=== PATIENT | male | born 1960 | race Caucasian/White ===

== ENCOUNTER 2022-03-20 07:42 | Outpatient (REF) | payer OTHER, BC, SELFPAY ==
[2022-03-20 07:51] LABS: MANUAL DIFF FLAG NO
[2022-03-20 08:17] LABS: Basophils Absolute Auto 0.1 X10*3/uL (0.0-0.2); Basophils Percent Auto 0.7 % (0-2); Eosinophils Absolute Auto 0.2 X10*3/uL (0.0-0.4); Eosinophils Percent Auto 2.5 % (0-4); Hemoglobin 16.2 g/dl (14.0-18.0); Imm Gran Abs Auto 0.02 X10*3/uL (0.00-0.03); Imm Gran Pct Auto 0.3 % (0.0-0.4); Lymphocytes Absolute Auto 2.4 X10*3/uL (1.2-4.9); Lymphocytes Percent Auto 34.9 % (20-40); Mean Corpuscular HGB Conc 33.8 g/dl (31.0-36.0); Mean Corpuscular Hemoglobin 29.3 pg (27.0-33.0); Mean Platelet Volume 9.4 fL (9.4-12.4); Monocytes Absolute Auto 0.6 X10*3/uL (0.1-1.2); Monocytes Percent Auto 8.6 % (2-11); Neutrophils Absolute Auto 3.6 x10*3/uL (2.0-8.3); Platelet Count 263 X10*3/uL (160-400); Red Blood Count 5.52 X10*6/uL (4.60-5.80); Red Cell Distribution Width 12.6 % (11.0-16.0); White Blood Count 6.9 X10*3/uL (4.8-10.8)
[2022-03-20 08:52] LABS: Alanine Aminotransferase 32 U/L (0-40); Albumin Level 4.5 g/dL (3.5-5.0); Alkaline Phosphatase 71 U/L (39-117); Anion Gap 14 (12-20); Aspartate Amino Transferase 23 U/L (5-37); Bilirubin Total 0.6 mg/dL (0.0-1.0); Blood Urea Nitrogen 14 mg/dL (9-16); Calcium 9.9 mg/dL (8.4-10.2); Carbon Dioxide 28 mmol/L (22-29); Chloride 105 mmol/L (96-108); Cholesterol 237 mg/dL; Estimated Glomerular Filt Rate > 60; Glucose Fasting 96 mg/dL (60-99); HDL Cholesterol 36 mg/dL; LDL Cholesterol Calculated 144 mg/dl; Sodium 142 mmol/L (135-145); Total Protein 7.4 g/dL (6.5-8.0); Triglycerides 287 mg/dL
[2022-03-20 09:08] LABS: Prostate Specific Antigen 0.43 ng/mL (<0.05-4.0); TSH reflex Free T4 1.05 uIU/mL (0.32-4.0)
== END 2022-03-20 07:43 | disposition home or self-care (01) ==
LOC: HO.LAB 07:42
PROVIDERS: PCP Internal Medicine; Visit Provider Internal Medicine
DX: Z00.01 Encounter for general adult medical examination with abnormal findings (principal); Z12.5 Encounter for screening for malignant neoplasm of prostate; E66.09 Other obesity due to excess calories; R03.0 Elevated blood-pressure reading, without diagnosis of hypertension
CPT/HCPCS: 36415; 80053; 80061; 84153; 84443; 85025

== ENCOUNTER 2023-03-21 10:22 | Outpatient (AMB) | payer BC, OTHER, SELFPAY ==
--- NOTE | 2023-03-21 10:25 | A.OFFPC_ITS ---
Vital Signs 03/21/23 10:26 Height 5 ft 11 in Weight 219 lb 4 oz BMI 30.6 BP 120/92 H Blood Pressure Location Rt brachial Position Sitting Pulse 91 Pulse Source Pulse Oximeter Pulse Oximetry (%) 98 Oxygen Delivery Method Room Air Intake Visit Reasons: Annual PE Allergies penicillin V Allergy (Unknown, Verified 03/21/23 10:26) Anaphylaxis Medication List - Last Reconciled 03/21/23 by Roger Jacobs MD No Known Home Meds Tobacco use date assessed: 03/21/23 Dental Screening Dental Screen Date: 03/21/23 Did you have a dental visit in the last 12 months?: Yes Did you have a dental problem in the last 6 months where you did not have access to dental care?: No Was dental information given to patient?: Patient has dentist HPI Annual PE HPI Details Patient is a 62-year-old gentleman came in today for physical examination Patient is taking medication his blood pressure is slightly elevated at 92 diastolic Patient is monitoring his pressure at he does not want to take any medication He was able to lose 10 lb since seen last 1 year ago Offers no complaint Patient is taking care of his and stays busy I did order colonoscopy consultation for the patient last time he said nobody called him I have given him Gastroenterology number so we can call in book is on appointment His LDL is slightly elevated I recommend diet-controlled. [facility] Social History Housing: Apartment Patient Tobacco Use Status: Never used Tobacco e-Cigarette/Vaping Use: Never Used service: Yes Current occupational status: employed and retired Cognitive needs: No Hearing needs: No Vision needs: Yes Questionnaire PHQ-9 Over the last 2 weeks, how often have you been bothered by any of the following problems? 1. Little interest or pleasure in doing things: not at all 2. Feeling down, depressed, or hopeless: not at all 3. Trouble falling or staying asleep, or sleeping too much: not at all 4. Feeling tired or having little energy: not at all 5. Poor appetite or overeating: not at all 6. Feeling bad about yourself - or that you are a failure or have let yourself or your family down: not at all 7. Trouble concentrating on things, such as reading the newspaper or watching television: not at all 8. Moving or speaking so slowly that other people could have noticed. Or the opposite - being so fidgety or restless that you have been moving around a lot more than usual: not at all 9. Thoughts that you would be better off or of hurting yourself in some way: not at all Total score: 0 Depression Screening Interpretation: Negative Depression Screening Done: Yes 20066 - PHQ-9 Billing: Yes Source: Developed by Drs. Gian Brown, Roxy Hernandez, Prakash Castillo and colleagues, with an educational yonas from [employer]. Thrive Questionnaire Date Thrive assessed: 03/17/22 AUDIT C Alcohol Use Questionnaire (AUDIT-C) 1. How often do you have a drink containing alcohol?: Never 3. How often do you have six or more drinks on one occasion?: Never Total Score: 0 Score Reviewed/Action Taken: No STEFF-7 AMB Questionnaire STEFF-7 Date STEFF - 7 assessed: 03/17/22 Source: Developed by Drs. Gian Brown, Roxy Hernandez, Prakash Castillo and colleagues, with an educational yonas from [employer]. Review of Systems Const Denies chills, Denies fever(s) and Denies headache(s) Eyes Denies blurry vision ENT Denies headache(s), Denies nasal discharge, Denies nasal obstruction, Denies odynophagia and Denies sinus pain Card Denies chest pain at rest and Denies chest pain with activity Resp Denies cough and Denies hemoptysis GI Denies diarrhea, Denies odynophagia, Denies vomiting and Denies hematemesis Reports as per HPI Musc Denies abnormal gait Skin/Breast Reports as per HPI Neuro Denies Neuro-related abnormal movements, Denies Abnormal speech present, Denies abnormal gait, Denies headache(s) and Denies Sensory deficit (Neuro) Psych Denies mood swings and Denies paranoia Endo Reports as per HPI Sal/Lymph Reports as per HPI Aller/Immun Reports as per HPI Physical exam (Primary Care) Vital Signs: Last Vital Signs Pulse 91 03/21/23 10:26 BP 120/92 H 03/21/23 10:26 Pulse Ox 98 03/21/23 10:26 Oxygen Delivery Method Room Air 03/21/23 10:26 BMI result Body Mass Index 30.6 Tobacco/Smoking Status: Tobacco use Status Tobacco use date assessed 03/21/23 03/21/23 10:28 Patient Tobacco Use Status Never used Tobacco 03/21/23 10:28 e-Cigarette/Vaping Use Never Used 03/21/23 10:28 Depression Screening Interpretation: Negative Thrive Assessment: Date of Thrive Assessment Date Thrive assessed 03/17/22 03/21/23 10:28 Const General: cooperative, comfortable and no acute distress Orientation/consciousness: patient oriented x3 HENMT Head: Yes normocephalic and Yes atraumatic Eyes General: appearance normal, both eyes and all related structures Pupils: Equal, round and reactive pupils present EOM: EOMs intact bilaterally Neck Neck: Yes supple and No lymphadenopathy Thyroid: Thyroid normal Lymphatic: no lymphadenopathy noted Resp Effort & Inspection: normal respiratory effort and able to speak in complete sentences Auscultation: clear to auscultation bilaterally Cardio Heart sounds: S1 normal heart sound present and S2 normal heart sound present GI Other: Patient has ventral hernia, no pain with palpation, he has been evaluated by surgery Palpation (GI): Soft to palpation and nontender Auscultation: normal bowel sounds General: Yes no CVA tenderness Back/Spine/Pelvis Back: no CVA tenderness Skin General skin exam: elasticity normal and turgor normal Neuro General: patient oriented x3 and gait normal Cranial nerves: Yes Equal, round and reactive pupils present Speech: No Abnormal speech present Sensory Exam: No Sensory deficit (Neuro) Coordination: tandem gait normal and Romberg test negative Extrem General: Yes normal exam except as noted and No edema Assessment and Plan Assessment & Plan (1) Encounter for general adult medical examination with abnormal findings: Code(s): Z00.01 - Encounter for general adult medical examination with abnormal findings (2) Obesity due to excess calories: Code(s): E66.09 - Other obesity due to excess calories Qualifiers: Body mass index: BMI 30.0-30.9 Obesity classification: adult class 1 (BMI 30 - 34.9) Serious obesity comorbidity presence: without serious comorbidity Qualified Code(s): E66.09 - Other obesity due to excess calories; Z68.30 - Body mass index [BMI] 30.0-30.9, adult (3) Ventral hernia: Code(s): K43.9 - Ventral hernia without obstruction or gangrene Qualifiers: Obstruction and gangrene presence: without obstruction or gangrene Qualified Code(s): K43.9 - Ventral hernia without obstruction or gangrene Plan Patient is a 62-year-old gentleman came in today for physical examination Patient is taking medication his blood pressure is slightly elevated at 92 diastolic Patient is monitoring his pressure at he does not want to take any medication He was able to lose 10 lb since seen last 1 year ago Offers no complaint Patient is taking care of his and stays busy I did order colonoscopy consultation for the patient last time he said nobody called him I have given him Gastroenterology number so we can call in book is on appointment His LDL is slightly elevated I recommend diet-controlled. Coding Level of Care Code Est Pt Prev Care 40-64y(87086) Diagnoses Encounter for general adult medical examination with abnormal findings Z00.01 Class 1 obesity due to excess calories without serious comorbidity with body mass index (BMI) of 30.0 to 30.9 in adult E66.09; Z68.30 Body mass index: BMI 30.0-30.9 Obesity classification: adult class 1 (BMI 30 - 34.9) Serious obesity comorbidity presence: without serious comorbidity Ventral hernia without obstruction or gangrene K43.9 Obstruction and gangrene presence: without obstruction or gangrene
[2023-03-21 10:26] VITALS: BP 120/92; PULSE 91; O2SAT 98; BMI 30.6
== END 2023-03-21 10:56 | disposition home or self-care (01) ==
PROVIDERS: Visit Provider Internal Medicine
DX: Z00.00 Encounter for general adult medical examination without abnormal findings (principal); E66.09 Other obesity due to excess calories; Z68.30 Body mass index [BMI] 30.0-30.9, adult; K43.9 Ventral hernia without obstruction or gangrene
CPT/HCPCS: 99396

== ENCOUNTER → 2023-12-07 14:07 | Outpatient (BNVA) | payer BC, OTHER, SELFPAY | PROVIDERS: PCP Internal Medicine ==

== ENCOUNTER → 2024-03-25 10:19 | Outpatient (BNVA) | payer BC, OTHER, SELFPAY | PROVIDERS: PCP Internal Medicine; Visit Provider Internal Medicine | DX: Z00.01 Encounter for general adult medical examination with abnormal findings (principal); E66.811 Obesity, class 1; E66.09 Other obesity due to excess calories; Z68.33 Body mass index [BMI] 33.0-33.9, adult; I10 Essential (primary) hypertension; E78.5 Hyperlipidemia, unspecified; J45.998 Other asthma | CPT/HCPCS: 96127 ==

== ENCOUNTER 2024-04-12 09:05 | Emergency (ER) | payer BC, OTHER, SELFPAY ==
--- NOTE | ~2024-04-12 | CT_ITS ---
CLINICAL HISTORY: submental right sided neck swelling, dental infxn CT soft tissue neck with contrast Comparison: None Findings: The visualized intracranial contents are unremarkable. No prevertebral fluid. Epiglottis is within normal limits. Pharyngeal mucosal space and parapharyngeal fat are normal. Salivary glands are within normal limits. No sialoliths. Thyroid gland is unremarkable. There is soft tissue edema of the right mandibular region without fluid collection. Evaluation is limited by the beam hardening artifact from the denture. No consolidation at the lung apices. No acute fracture or dislocation. IMPRESSION: Soft tissue edema of the right mandibular region concerning for infection. No evidence of drainable abscess in the soft tissue. This document has been electronically signed by: Al Beyer MD on 04/12/2024 13:26:37
[2024-04-12 09:18] VITALS: BP 144/100; PULSE 100; RESP 18; TEMP 36.8; O2SAT 97; BMI 32.1
--- NOTE | 2024-04-12 09:25 | PC.NURSE ---
pt states his pain level is 6-7/10 with associated headache, pt states hes had tooth pain for the last few days but woke last night with a fever and facial swelling. pt took tylenol at 2am.
--- NOTE | 2024-04-12 09:44 | ED.DENTAL ---
HPI - Dental/Oral General Chief complaint: Dental/Oral Stated complaint: Abscess tooth possible infected Time Seen by Provider: 04/12/24 09:30 Source: patient Mode of arrival: ambulatory Limitations: no limitations History of Present Illness ED Provider: Sy Smith PA-C HPI Narrative: 63 yo male with history of HTN presents to the ER for evaluation of acute onset of right lower dental pain and swelling that he woke up with his morning. He reports some mild dental pain in the area over the last several days that he did not think much of. He states when he woke up he had swelling and tenderness of the right lower jaw and under his chin. Pain worse with opening his mouth and talking. He thinks he had a fever this morning. He has a dentist appointment mid April. No hx DM. nonsmoker. He went to an urgent care who advised he come to the ER for further evaluation. Complaint: tooth pain Location: Tooth # (27) Onset (ago): hour(s) Duration: constant Severity: moderate Relieving factors: nothing Exacerbating factors: chewing Context: poor dental care Associated symptoms: gum swelling Treatment prior to arrival: none Related Data Previous Rx's ?Medication ?Instructions ?Recorded clindamycin HCl 300 mg capsule 300 mg PO TID 1 week #21 caps 04/12/24 ibuprofen 600 mg tablet 600 mg PO Q8H PRN fever or pain 04/12/24 #20 tabs Allergies Allergy/AdvReac Type Severity Reaction Status Date / Time penicillin V Allergy Unknown Anaphylaxis Verified 04/12/24 09:20 Review of Systems Review of Systems: Yes all other systems are reviewed and are negative PMFSH Social History Social History Housing: Apartment Patient Tobacco Use Status: Never used Tobacco e-Cigarette/Vaping Use: Never Used Advance Directives: No Advance Directives Information Provided: No Do you have a plan to hurt others: No Plan service: Yes Current occupational status: employed and retired Cognitive needs: No Hearing needs: No Vision needs: Yes Physical Exam Vital Signs: Vital Signs: Last Vital Signs Temp 98.2 F 04/12/24 09:18 Pulse 100 04/12/24 09:18 Resp 18 04/12/24 09:18 BP 144/100 H 04/12/24 09:18 Pulse Ox 97 04/12/24 09:18 BMI result Body Mass Index 32.1 Medications Administered Discontinued Medications Generic Name Dose Route Start Last Admin Trade Name Syedq PRN Reason Stop Dose Admin Clindamycin HCl 600 mg 04/12/24 09:57 04/12/24 10:28 Clindamycin Hcl 300 Mg Capsule PO 04/12/24 09:58 600 mg ONCE ONE Administration Iohexol 100 ml 04/12/24 11:18 04/12/24 11:18 Iohexol 350 Mg/Ml 100 Ml Infus..Btl IV 04/12/24 11:19 60 ml ONCE ONE Administration Ketorolac Tromethamine 15 mg 04/12/24 12:40 04/12/24 13:08 Ketorolac Tromethamine 15 Mg/Ml Vial IVPUSH 04/12/24 12:41 15 mg ONCE ONE Administration Medical Decision Making Medical Decision Making [facility] Narrative: 63 yo male presenting for evaluation of a dental abscess. pain and swelling extend to the submental space. CT scan of the soft tissues ordered for further evaluation. hypoglossal space is normal which is reassuring labs with mild leukocytosis. renal function normal. given PO clinda due to pcn allergy along w/ iv toradol. he has had improvement in both pain and swelling CT scan without drainable abscess symptoms are improved. comfortable with discharge home with PO abx and NSAID, dental follow up return precautions were discussed Differential Diagnosis Differential Diagnoses: The differential diagnosis associated with the presentation includes dental abscess, tyrell's angina, phlegmon, dental trauma, lymphadenopathy Admission/Observation Consideration of admission/observation: Escalation of care including admission/observation considered Lab Data [facility] Lab Attestation statement: I reviewed the patient's lab results. as above 04/12/24 10:21 04/12/24 10:21 Labs: Lab Results 04/12/24 Range/Units 10:21 WBC 11.8 H (4.8-10.8) X10*3/uL RBC 5.45 (4.60-5.80) X10*6/uL Hgb 16.1 (14.0-18.0) g/dl Hct 47.1 (42.0-52.0) % MCV 86.4 (80.0-98.0) fL MCH 29.5 (27.0-33.0) pg MCHC 34.2 (31.0-36.0) g/dl RDW 12.9 (11.0-16.0) % Plt Count 230 (160-400) X10*3/uL MPV 8.9 L (9.4-12.4) fL Immature Gran % (Auto) 0.3 (0.0-0.4) % Neut % (Auto) 76.3 H (45-73) % Lymph % (Auto) 12.1 L (20-40) % [place] % (Auto) 10.5 (2-11) % Eos % (Auto) 0.4 (0-4) % Baso % (Auto) 0.4 (0-2) % Lymph # (Auto) 1.4 (1.2-4.9) X10*3/uL [place] # (Auto) 1.2 (0.1-1.2) X10*3/uL Eos # (Auto) 0.1 (0.0-0.4) X10*3/uL Baso # (Auto) 0.1 (0.0-0.2) X10*3/uL Abs Immat Gran (auto) 0.04 H (0.00-0.03) X10*3/uL Absolute Neuts (auto) 9.0 H (2.0-8.3) x10*3/uL Absolute Nucleated RBC 0.000 (0.0-0.012) X10*3/uL Nucleated RBC % (auto) 0.0 (0.0-0.2) /100WBC Sodium 139 (135-145) mmol/L Potassium 3.9 (3.3-5.1) mmol/L Chloride 105 (96-108) mmol/L Carbon Dioxide 25 (22-29) mmol/L Anion Gap 13 (12-20) BUN 8 L (9-16) mg/dL Creatinine 0.97 (0.5-1.4) mg/dL Estim Creat Clear Calc 95.8 Estimated GFR > 60 Random Glucose 110 (60-115) mg/dL Calcium 9.6 (8.4-10.2) mg/dL Independent Interpretation I performed an independent interpretation of an: CT Scan Interpretation: ct scan with edema of the right submandibular area without rim enhancing lesion to suggest abscess Radiology Impression Discussion of test interpretation with radiology: I have reviewed the radiologist's reading. Radiologist Impression: IMPRESSION: Soft tissue edema of the right mandibular region concerning for infection. No evidence of drainable abscess in the soft tissue. External Record Review External record reviewed: Prior outpatient labs Prescription Management I considered prescription management with: Pain Medication and Antibiotic Chronic Conditions Patient?s care impacted by: Hypertension Procedures Abscess I/D Site: oral Side (if applicable): right Technique: needle aspiration Sent for culture/gram staining?: No Irrigation: No Packing used?: none Complications: bleeding Critical Care Time Critical Care Time Critical Care Time: No Discharge Plan Discharge Clinical Impression: Dental infection Patient Disposition: Home, Self-Care Instructions: Dental Abscess (ED) Additional Instructions: your CT scan did not show a drainable abscess Take the prescribed antibiotics as directed, complete the entire course and do not miss any doses This antibiotic has been known to cause disruption of the normal bacteria in your gut and can cause an infection called C. Diff - recommend taking over the counter probiotic while you are on this medication to help prevent this. Follow up with your dentist in the next week or 2 If you develop new or worsening symptoms call 911 or come back to the ER for further evaluation. IMPRESSION: Soft tissue edema of the right mandibular region concerning for infection. No evidence of drainable abscess in the soft tissue. Prescriptions: New clindamycin HCl 300 mg capsule 300 mg PO TID 7 Days Qty: 21 0RF ibuprofen 600 mg tablet 600 mg PO Q8H PRN (Reason: fever or pain) Qty: 20 0RF Referrals: Roger Jacobs MD [Primary Care Provider] - Print Language: Amharic
[2024-04-12 10:25] LABS: MANUAL DIFF FLAG NO
[2024-04-12] MEDS: Clindamycin HCL 300 MG CAPSULE 600 MG PO (10:28)
--- NOTE | 2024-04-12 10:29 | PC.NURSE ---
iv inserted labs drawn, pt medicated per order
[2024-04-12 10:32] LABS: Basophils Absolute Auto 0.1 X10*3/uL (0.0-0.2); Basophils Percent Auto 0.4 % (0-2); Eosinophils Absolute Auto 0.1 X10*3/uL (0.0-0.4); Eosinophils Percent Auto 0.4 % (0-4); Hematocrit 47.1 % (42.0-52.0); Hemoglobin 16.1 g/dl (14.0-18.0); Imm Gran Abs Auto 0.04 X10*3/uL (0.00-0.03); Imm Gran Pct Auto 0.3 % (0.0-0.4); Lymphocytes Absolute Auto 1.4 X10*3/uL (1.2-4.9); Lymphocytes Percent Auto 12.1 % (20-40); Mean Corpuscular HGB Conc 34.2 g/dl (31.0-36.0); Mean Corpuscular Hemoglobin 29.5 pg (27.0-33.0); Mean Corpuscular Volume 86.4 fL (80.0-98.0); Mean Platelet Volume 8.9 fL (9.4-12.4); Monocytes Absolute Auto 1.2 X10*3/uL (0.1-1.2); Monocytes Percent Auto 10.5 % (2-11); Neutrophils Percent Auto 76.3 % (45-73); Platelet Count 230 X10*3/uL (160-400); Red Blood Count 5.45 X10*6/uL (4.60-5.80); Red Cell Distribution Width 12.9 % (11.0-16.0); White Blood Count 11.8 X10*3/uL (4.8-10.8)
[2024-04-12 10:40] LABS: Anion Gap 13 (12-20); Blood Urea Nitrogen 8 mg/dL (9-16); Calcium 9.6 mg/dL (8.4-10.2); Carbon Dioxide 25 mmol/L (22-29); Chloride 105 mmol/L (96-108); Creatinine Clr Calc Pharmacy 95.8; Estimated Glomerular Filt Rate > 60; Glucose Random 110 mg/dL (60-115); Potassium 3.9 mmol/L (3.3-5.1); Sodium 139 mmol/L (135-145)
[2024-04-12] MEDS: iohexoL 350 MG/ML 100 ML INFUS..BTL IV (11:18)
[2024-04-12] MEDS: Ketorolac Tromethamine 15 MG/ML VIAL IVPUSH (13:08)
[2024-04-12 14:13] VITALS: BP 144/100; PULSE 100; RESP 18; TEMP 36.8; O2SAT 97
== END 2024-04-12 14:14 | disposition home or self-care (01) ==
PROVIDERS: Physician Assistant; Emergency Provider Emergency Medicine; PCP Internal Medicine
DX: K04.7 Periapical abscess without sinus (principal); K08.89 Other specified disorders of teeth and supporting structures; M54.2 Cervicalgia; Z79.899 Other long term (current) drug therapy
CPT/HCPCS: 36415; 41800; 70491; 80048; 85025; 96374; 99284; J1885; Q9967

== ENCOUNTER → 2024-04-12 09:55 | Outpatient (BNV) | payer BC, OTHER, SELFPAY | PROVIDERS: Emergency Provider Emergency Medicine; PCP Internal Medicine; Visit Provider Nuclear Medicine | DX: R22.1 Localized swelling, mass and lump, neck (principal) | CPT/HCPCS: 70491 ==